=== PATIENT | male | born 1990 | race Caucasian/White ===

== ENCOUNTER 2025-04-06 19:59 | Outpatient (CLI) | payer BC, MEDICAID, SELFPAY | END 2025-04-06 20:00 | disposition home or self-care (01) | LOC: SLEEP 20:00 | PROVIDERS: PCP Nurse Practitioner; Visit Provider Internal Medicine Pulmonary Disease | DX: G47.33 Obstructive sleep apnea (adult) (pediatric) (principal); G47.36 Sleep related hypoventilation in conditions classified elsewhere; G47.61 Periodic limb movement disorder | CPT/HCPCS: 95810 ==

== ENCOUNTER 2025-06-02 19:59 | Outpatient (CLI) | payer BC, MEDICAID, SELFPAY | END 2025-06-02 20:00 | disposition home or self-care (01) | LOC: SLEEP 20:00 | PROVIDERS: PCP Nurse Practitioner; Referring Provider Nurse Practitioner; Visit Provider Internal Medicine Pulmonary Disease | DX: G47.33 Obstructive sleep apnea (adult) (pediatric) (principal) | CPT/HCPCS: 95811 ==